=== PATIENT | female | born 1985 | race Caucasian/White ===

== ENCOUNTER 2017-03-27 21:52 | Emergency (ER) | payer SELFPAY ==
[2017-03-27 21:57] VITALS: BP 118/72
== END 2017-03-27 22:28 | disposition left against medical advice (07) ==
LOC: ED 21:52
DX: K08.89 Other specified disorders of teeth and supporting structures (principal); Z53.21 Procedure and treatment not carried out due to patient leaving prior to being seen by health care provider

== ENCOUNTER 2017-04-06 13:07 | Emergency (ER) | payer SELFPAY ==
[2017-04-06 13:13] VITALS: BP 118/66
[2017-04-06] MEDS ORDERED: Cyclopentolate 1% OPTH.SOL* 2 ML BTL RIGHT EYE ONE (14:15)
[2017-04-06] MEDS ORDERED: Polymyx/Trimethoprim OPTH* 10 ML BTL RIGHT EYE ONE (14:16)
[2017-04-06] MEDS ORDERED: Ketorolac INJ* 60 MG/2 ML VIAL IM ONE (14:17)
[2017-04-06] MEDS ORDERED: oxyCODONE/Acetamin 5/325 MG* TAB PO ONE (14:17)
--- NOTE | 2017-04-06 14:19 | ED ---
Throat Pain/Nasal Congestion - HPI Summary HPI Summary: 32F presents with foreign body in right eye for 2 days. She states she does not know what is in her eye but she feels something above her right upper lid. She has irrigated her eye out for two days without any relief. She does not wear contacts. She admits to blurry vision and photophobia. She denies any discharge. She states both her eyes have been watering. She has not taken anything for pain and is extreme pain. She does wear glasses. - History of Current Complaint Chief Complaint: EDEyeProblem Time Seen by Provider: 04/06/17 13:42 PMH/Surg Hx/FS Hx/Imm Hx Endocrine/Hematology History: Denies: Hx Anticoagulant Therapy Opthamlomology History: Reports: Hx Contacts or Glasses Infectious Disease History: No Infectious Disease History: Denies: Traveled Outside the [place] in Last 30 Days - Family History Known Family History: Positive: Hypertension - Social History Alcohol Use: None Substance Use Type: Reports: None Smoking Status (MU): Never Smoked Tobacco Review of Systems Negative: Fever Positive: Photophobia, Blurred Vision, Other - foreign body Negative: Chest Pain Negative: Shortness Of Breath All Other Systems Reviewed And Are Negative: Yes Physical Exam Triage Information Reviewed: Yes Vital Signs On Initial Exam: Initial Vitals Temp Pulse Resp BP Pulse Ox 98.0 F 98 16 118/66 100 04/06/17 13:10 04/06/17 13:10 04/06/17 13:10 04/06/17 13:10 04/06/17 13:10 Vital Signs Reviewed: Yes Appearance: Positive: Well-Appearing Skin: Positive: Warm, Dry Head/Face: Positive: Normal Head/Face Inspection Eyes: Positive: Normal, EOMI, LUIS, Conjunctiva Inflammed, Discharge - watery ENT: Positive: Normal ENT inspection, Pharynx normal, TMs normal Respiratory/Lung Sounds: Positive: Clear to Auscultation, Breath Sounds Present Cardiovascular: Positive: Normal, RRR Procedures - Eye Procedure Alcaine Drops Administered: Yes - fluorscein stain shows 9 position 1mm Diagnostics - Vital Signs Vital Signs Temp Pulse Resp BP Pulse Ox 04/06/17 13:10 98.0 F 100 18 118/66 100 - Laboratory Lab Statement: Any lab studies that have been ordered have been reviewed, and results considered in the medical decision making process. EENT Course/Dx - Course Course Of Treatment: 32F presents with foreign body in right eye for 2 days. She states she does not know what is in her eye but she feels something above her right upper lid. She has irrigated her eye out for two days without any relief. She does not wear contacts. On exam she has small corneal abrasion no foreign body seen. will treat with polytrim and cyclogyl and told to follow up with optho. patient understands and agrees with plan - Differential Diagnoses Differential Diagnoses: Conjunctivitis, Corneal Abrasion, Foreign Body - Diagnoses Provider Diagnoses: Corneal abrasion, right Discharge - Discharge Plan Condition: Good Disposition: HOME Prescriptions: oxyCODONE/Acetamin 5/325 MG* [Percocet 5/325 TAB*] 1 tab PO Q6H PRN #10 tab MDD 4 PRN Reason: Pain Patient Education Materials: Corneal Abrasion (ED) Referrals: [facility] [Outside] Additional Instructions: Place 1 drop in eye 4 times a day for 5 days Use artificial tears or saline to rinse eye for symptomatic relief Take ibuprofen for pain every 6 days and use narcotic for break through pain Take cyclogyl drops once a day until symptoms resolve Follow up with ophthalmology in 5 days Return to ED if develop any new or worsening symptoms
== END 2017-04-06 14:43 | disposition home or self-care (01) ==
LOC: ED 13:07
DX: S05.01XA Injury of conjunctiva and corneal abrasion without foreign body, right eye, initial encounter (principal); X58.XXXA Exposure to other specified factors, initial encounter; Y92.9 Unspecified place or not applicable
CPT/HCPCS: 99282; A9270-GY; J1885